=== PATIENT | female | born 1970 | race Caucasian/White ===

== ENCOUNTER 2023-07-11 06:41 | Day surgery (SDC) | payer OTHER, SELFPAY ==
[2023-07-11] VITALS (8 sets, daily range): BP systolic 107–140; BP diastolic 66–92; PULSE 59–69; RESP 16–18; TEMP 36.2–36.8; O2SAT 94–100; BMI 35.6
[2023-07-11] MEDS: Lactated Ringers 1,000 ML 15 ML IV (07:21)
[2023-07-11 07:48] LABS: Bedside Glucose 157 mg/dL (74-106)
--- NOTE | 2023-07-11 09:19 | DCINST_ITS ---
Discharge Instructions Diet Discharge Diet: No restrictions Activity Discharge Activity: Return to Normal Activity Dressing / Incision Call your doctor if you observe: Fever of 101 or Higher, Inability to urinate and Inability to have a bowel movement Follow Up Care Please Follow Up With: Sommer Doan MD When: The office will call the patient to make arrangements for follow-up. Test Results: Test results from this visit will be discussed in further detail at your follow- up appointment, if applicable. Discharge Plan Admission Attending Provider: Sommer Doan Primary Care Provider: Jennifer Rios Discharge Orders/Prescriptions Prescriptions: Continued metformin 500 mg tablet 500 mg PO DAILY atorvastatin 10 mg tablet 10 mg PO QHS Patient Comments: TAKE 1 TABLET BY MOUTH NIGHTLY Magnesium Complex 300 mg magnesium tablet 500 mg PO DAILY Airborne Gummy 250-11.66 mg tablet,chewable 1 tab PO DAILY cholecalciferol (vitamin D3) [Vitamin D3] 125 mcg (5,000 unit) tablet 125 mcg PO DAILY Probiotic Acidophilus 1.5 mg (250 million cell) capsule 500 mmu cells PO DAILY docusate sodium [Colace] 100 mg capsule 100 mg PO DAILY Dramamine 25 mg tablet,chewable 25 mg PO Q6H PRN (Reason: motion sickness) Referrals / Follow Up: Jennifer Rios MD [Primary Care Provider] - Disposition Disposition (needs filled in before D/C Order can be placed): Home, Self Care
--- NOTE | 2023-07-11 09:19 | PCM.OPRPT ---
Report of Operation Date of Procedure: 07/11/23 Pre-Operative Diagnosis: Urinary tract infection Post-Operative Diagnosis: Same, significant constipation Surgery/Procedure Performed:: Cystoscopy, pelvic examination under anesthesia Surgeon: Sommer Doan Type of Anesthesia: MAC Description of Procedure: The patient is a 52-year-old female with a longstanding history of issues with her bladder and pelvic organs. She has had surgical intervention for her prolapse. She is continuing to have urinary tract infections and debris in her urine and presents for evaluation under anesthesia. She had a bad experience with and a cystoscopy in the office in the past. Informed consent was obtained. She was taken to the operating room and placed on the operating room table. Anesthesia monitored the head, neck, airway, IV access and vital signs throughout the case. Once anesthesia was appropriately administered, the patient was placed into dorsolithotomy position was prepped and draped in usual sterile fashion. The cystoscope was inserted through the urethra under direct visualization into the urinary bladder. The bladder mucosa was visualized in its entirety. There was no evidence of foreign body in the urethra or the bladder. There was no mass, erythema, ulceration or other abnormality identified. The ureteral orifices were located in the correct anatomic position in the area of the trigone. The bladder was then emptied and the cystoscope was removed from the urethra and inserted into the vagina. Evaluation with the scope revealed no evidence of foreign body or abnormality including ulceration or mass within the vaginal lumen. Manual examination revealed significant constipation, no mass was palpable. No prolapse was appreciated. Grafts/Implants Used: None Complications None Admit VTE Documentation VTE Present on Admission: Yes VTE Mechan Device Prophylaxis: SCD's VTE Pharm Prophylaxis ordered?: No Reason prophylaxis not ordered:: Treatment Not Indicated
== END 2023-07-11 09:57 | disposition home or self-care (01) ==
LOC: SDC 06:43 → AC 06:46
PROVIDERS: PCP Family Medicine; Referring Provider Urology; Visit Provider Urology
PROC: 0TJB8ZZ Inspection of Bladder, Via Natural or Artificial Opening Endoscopic (ICD-10-PCS; CPT 57410; principal; 2023-07-11 08:25)
DX: N39.0 Urinary tract infection, site not specified (principal); E11.9 Type 2 diabetes mellitus without complications; K59.00 Constipation, unspecified; Z87.891 Personal history of nicotine dependence; Z87.19 Personal history of other diseases of the digestive system; E78.00 Pure hypercholesterolemia, unspecified; Z90.49 Acquired absence of other specified parts of digestive tract; N95.2 Postmenopausal atrophic vaginitis; N39.3 Stress incontinence (female) (male); Z90.710 Acquired absence of both cervix and uterus; R10.2 Pelvic and perineal pain
CPT/HCPCS: 52000; 00910; 82962; J7120; J2405